=== PATIENT | female | born 1975 | race Two or more races ===

== ENCOUNTER 2021-11-05 11:54 | Emergency (ER) | payer MEDICAID, OTHER ==
[~2021-11-05] VITALS: Ht 157.5 cm; Wt 86.0 kg
[2021-11-05 12:15] VITALS: BP 107/76
[2021-11-05] MEDS ORDERED: cefTRIAXone SOD 1,000 MG VL IM ONE (12:30)
[2021-11-05] MEDS ORDERED: DexAMETHasone SOD PHOS 10MG/1ML VIAL INJ IM ONE (12:30)
[2021-11-05] MEDS ORDERED: PROM1SOL4 PO (13:40)
[2021-11-05] MEDS ORDERED: AZIT250T8 PO (13:40)
== END 2021-11-05 13:48 | disposition home or self-care (01) ==
LOC: ER 11:54
DX: J02.9 Acute pharyngitis, unspecified (principal); J45.909 Unspecified asthma, uncomplicated; Z20.822 Contact with and (suspected) exposure to COVID-19; Z90.710 Acquired absence of both cervix and uterus; Z79.2 Long term (current) use of antibiotics; Z79.899 Other long term (current) drug therapy; Z88.8 Allergy status to other drugs, medicaments and biological substances
CPT/HCPCS: 36415; 71045; 87426; 96372; 99284; J0696; J1100